=== PATIENT | male | born 1955 | race Caucasian/White ===

== ENCOUNTER → 2018-07-19 | Outpatient (CLI) | payer BC ==
--- NOTE | 2018-07-19 20:20 | Diagnostic Imaging Report ---
EXAMINATION: Magnetic resonance imaging of the right shoulder without contrast. DATE: July 19, 2018. COMPARISON: None. HISTORY: 63-year-old male, fall in May 2018 with persistent right shoulder pain and decreased range of motion. TECHNIQUE: Magnetic Resonance Imaging sequences were performed of the shoulder without contrast. FINDINGS: ROTATOR CUFF, LIGAMENTS, TENDONS, AND MUSCLES: There is severe supraspinatus tendinopathy. There is a 15 mm wide full-thickness tear of the supraspinatus tendon with a fluid-filled tendon gap measuring 8 mm as measured on coronal T2 fat saturation sequence image 10. The tear is just proximal to the supraspinatus tendon insertion. There is infraspinatus tendinopathy. The teres minor tendon is intact. The subscapularis tendon is intact. There is low-level edema-like signal in portions of the supraspinatus muscle as well as a very small intramuscular ganglion cyst. The low level edema in the muscle potentially could relate to a low-grade muscle strain and does not involve the entire muscle. LONG HEAD OF BICEPS: The biceps labral attachment and long head of the biceps tendon is intact. The long head of the biceps tendon is normally positioned within the bicipital groove. GLENOHUMERAL JOINT: The humeral head is well positioned relative to the glenoid. There is a tear involving the posterior inferior labrum extending from approximately the 7 o'clock to 8 o'clock position to involve the entire length of the inferior labrum and likely extending to the anterior inferior labrum at the 4 o'clock to 5 o'clock position. There is no identified paralabral cyst. The articular cartilage is grossly intact. There is no joint effusion. ACROMIOCLAVICULAR JOINT: The acromioclavicular joint is normally aligned. The coracoclavicular and coracoacromial ligaments are intact. There are mild to moderate acromioclavicular degenerative changes with 2 mm undersurface osteophytes. BONE: There is no os acromiale. There is no acute fracture, bone contusion, or evidence of osteonecrosis. BURSAE AND SOFT TISSUES: There is fluid in the subacromial subdeltoid bursa compatible with the full-thickness rotator cuff tendon tear, bursitis, and/or recent injection. IMPRESSION: 1. Supraspinatus tendinopathy with a 15 mm wide full-thickness tear of the supraspinatus tendon with a fluid-filled tendon gap of 8 mm. No fatty muscle atrophy. Low level edema in portions of the supraspinatus muscle most likely relate to a low-grade muscle strain. Infraspinatus tendinopathy. 2. Mild to moderate acromioclavicular degenerative changes with 2 mm undersurface osteophytes. No os acromiale. 3. Inferior labral tear which likely extends from the posterior inferior labrum at approximately the 7 o'clock to 8 o'clock position to the anterior inferior labrum at the 4 o'clock to 5 o'clock position. No paralabral cyst. Grossly intact articular cartilage. 4. No acute fracture or bone contusion. 5. Fluid in the subacromial subdeltoid bursa compatible with the full-thickness rotator cuff tendon tear, bursitis, and/or recent injection. Dictated by: Dictated on workstation # [id number]
== END ==
LOC: RAD 15:14
PROVIDERS: ATTEND Nurse Practitioner
DX: M75.121 Complete rotator cuff tear or rupture of right shoulder, not specified as traumatic (principal); M67.813 Other specified disorders of tendon, right shoulder; M19.011 Primary osteoarthritis, right shoulder; S43.491A Other sprain of right shoulder joint, initial encounter
CPT/HCPCS: 73221

== ENCOUNTER → 2019-08-30 | Outpatient (CLI) | payer BC ==
--- NOTE | 2019-08-30 14:51 | Diagnostic Imaging Report ---
INDICATION: Severe right hip pain, post injury many years ago. TECHNIQUE: Two views of the right hip. CORRELATION STUDY: None FINDINGS: An approximately 15 mm well-corticated calcification interposed between the ischial tuberosity and lesser trochanter is present and may be owing to previous avulsion type injury. Slight sclerosis and irregularity along the ischial tuberosity are noted. An acute bony abnormality is not demonstrated. The femoral head/acetabular relationship appears maintained. The bony trabecular pattern is intact. There is also slight irregularity with prominent ossification at the superior aspect of the right greater trochanter. The visualized portion of the right SI joint is unremarkable. Mild sclerosis of the pubic symphysis. IMPRESSION: Negative for acute bony abnormality of the right hip. Well-corticated bone fragment interposed between the ischial tuberosity and lesser trochanter as well as slight irregularity about the greater trochanter may reflect previous avulsion injury. Dictated by: Dictated on workstation # [id number]
== END ==
LOC: RAD FS 13:34
PROVIDERS: ATTEND Nurse Practitioner
DX: M25.551 Pain in right hip (principal)
CPT/HCPCS: 73502

== ENCOUNTER → 2020-01-24 | Outpatient (CLI) | payer BC ==
--- NOTE | 2020-01-24 14:32 | Diagnostic Imaging Report ---
EXAMINATION: Left hip at 1:42 PM. INDICATION: Hip pain. TECHNIQUE/COMPARISON: Two views are obtained. There are no prior studies available for comparison. FINDINGS: There is no fracture, dislocation, or acute bony abnormality evident. There is mild degenerative disease of the hip joint. There also appears to be mild degenerative change of the left sacroiliac joint. The soft tissues are unremarkable. IMPRESSION: There is no evidence for an acute bony abnormality. Dictated by: Dictated on workstation # [id number]
== END ==
LOC: RAD FS 13:30
PROVIDERS: ATTEND Nurse Practitioner
DX: M25.552 Pain in left hip (principal)
CPT/HCPCS: 73502

== ENCOUNTER 2022-01-04 09:40 | Emergency (ER) | payer BC ==
[~2022-01-04] VITALS: Ht 187 cm; Wt 93.0 kg
[2022-01-04] MEDS ORDERED: LIDOCAINE 1% INJ 50 ML (XYLOCAINE) VIAL ONE (09:47)
[2022-01-04] MEDS ORDERED: LIDOCAINE 1% INJ 50 ML (XYLOCAINE) VIAL IJ STA (10:07)
[2022-01-04 10:09] VITALS: BP 154/80
[2022-01-04] MEDS ORDERED: CEPH500C PO (10:12)
--- NOTE | 2022-01-04 10:12 | ED Lower Extremity ---
General Chief Complaint: Laceration Stated Complaint: LT KNEE LAC Nursing Triage Note: PT REPORTS HE WAS CUTTING SAPPLINGS WITH A CHAIN SAW AND THE SAW HIT A STUMP AND KICKED BACK AND HIT HIS KNEE. LAC TO LEFT KNEE. Source: patient History of Present Illness Date Seen by Provider: Jan 04, 2022 Time Seen by Provider: 09:41 Initial Comments 66-year-old male presenting with complaints of laceration to his left knee. He was using a chainsaw cutting down samplings when 1 kicked back and made him accidentally cut into his knee. He denies any significant pain. He states he has been more than 5 years for his last tetanus booster. He has bleeding controlled with pressure. He denies any other injuries. He does have chronic pain in the knee and is scheduled to see orthopedic surgeon, Dr. Morton, next week. Onset: just prior to arrival Severity: mild Pain/Injury Location: left knee (laceration) Method of Injury: incised Modifying Factors: Worse With Movement Allergies and Home Medications Allergies Coded Allergies: No Known Drug Allergies (Unverified , 01/04/22) Patient Home Medication List Home Medication List Reviewed: Yes Cephalexin (Cephalexin) 500 Mg Capsule, 500 MG PO TID Prescribed by: ERNA WONG on 01/04/22 1012 Review of Systems Constitutional: No chills, No fever EENTM: no symptoms reported Respiratory: no symptoms reported Cardiovascular: no symptoms reported Gastrointestinal: no symptoms reported Genitourinary: no symptoms reported Musculoskeletal: see HPI Skin: see HPI Psychiatric/Neurological: Denies Numbness, Denies Paresthesia Past Tkzubkj-Yemrxk-Abbetw Hx Patient Social History Tobacco Use?: Yes Tobacco type used: Cigarettes Smoking Status: Current Everyday Smoker Use of E-Cig and/or Vaping dev: No Substance use?: No Alcohol Use?: No Pt feels they are or have been: No Immunizations Up To Date First/Initial COVID19 Vaccinat: 2020 COVID19 Vaccine Clinical Mental Health Counselor: [employer] Physical Exam Vital Signs Vital Signs - First Documented 01/04/22 09:45 Temp 36.4 Pulse 104 Resp 20 B/P (MAP) 154/80 (104) Pulse Ox 97 O2 Delivery Room Air Capillary Refill : Less Than 3 Seconds Height, Weight, BMI Height: '" Weight: lbs. oz. kg; 26.00 BMI Method: General Appearance: WD/WN, no apparent distress Cardiovascular: normal peripheral pulses Knees: left knee soft tissue tenderness (mild tenderness to the left knee at site of laceration) Neurologic/Tendon: normal sensation, normal motor functions, normal tendon functions Neurologic/Psychiatric: no motor/sensory deficits, alert, normal mood/affect, oriented x 3 Skin: warm/dry, other (laceration to left knee medial aspect) Procedures/Interventions Wound Location: Lower Extremities (left knee medial aspect) Wound Length (cm): 3.6 Wound's Depth, Shape: irregular, contused tissue, sub Q Wound Explored: clean Irrigated w/ Saline (ccs): 100 (with chlorhexidine scrub soap) Anesthesia: 1% Lidocaine Volume Anesthetic (ccs): 6 Suture: Ethlion Suture Size: 4-0 Number of Sutures: 7 Layer Closure?: 1 Sterile Dressing Applied?: Yes Progress After obtaining verbal consent from the patient the wound was cleaned with a chlorhexidine scrub soap and sterile water. Then using 1% plain lidocaine a total of 6 mL were infiltrated in the wound for anesthetic effect. The wound was further cleaned and no foreign bodies were visualized. Using 4-0 Ethilon 7 simple interrupted stitches were placed to approximate the wound edges. Wound edges were well approximated and patient tolerated procedure well without any immediate complication. Will prescribe a 7-day course of cephalexin to help prevent infection since the laceration was through his jeans. Counseled on follow-up and return precautions. Advised to have the stitches out in 10 to 14 days or be seen sooner if signs of infection. Progress/Results/Core Measures Results/Orders My Orders Orders - ERNA WONG MD Lidocaine 1% Inj 50 Ml (Xylocaine 1% Inj (01/04/22 09:47) Lidocaine 1% Inj 50 Ml (Xylocaine 1% Inj (01/04/22 10:07) Dipht,Pertuss(Acell),Tet Adult (Boostrix (01/04/22 10:15) Suture Set At Bedside (01/04/22 10:07) Wound Dressing-Ed (01/04/22 10:07) Medications Given in ED Current Medications Medications Dose Ordered Sig/Ran Route Start Time Stop Time Status Last Admin Dose Admin Diphtheria/ Tetanus/Acell Pertussis 0.5 ml ONCE ONCE IM 01/04/22 10:15 01/04/22 10:16 01/04/22 10:12 0.5 ML Lidocaine HCl 50 ml STK-MED ONCE .ROUTE 01/04/22 09:47 01/04/22 09:51 DC 01/04/22 09:54 5 ML Vital Signs/I&O 01/04/22 01/04/22 09:45 10:09 Temp 36.4 36.4 Pulse 104 104 Resp 20 20 B/P (MAP) 154/80 (104) 154/80 Pulse Ox 97 97 O2 Delivery Room Air Room Air 2 Blood Pressure Mean: 104 Progress Progress Note : Progress Note Update tetanus booster. Using 4-0 Ethilon 7 simple interrupted stitches were placed to approximate wound edges. Discharged on a week of antibiotics to try and help prevent infection since the laceration was through his jeans. Departure Impression Primary Impression: Laceration without foreign body, left knee, initial encounter Disposition: HOME, SELF-CARE Condition: Stable Departure-Patient Inst. Decision time for Depature: 10:09 Referrals: ABIEL WHITESIDE MD (PCP) Primary Care Physician Patient Instructions: Laceration Repair With Stitches ED Add. Discharge Instructions: Keep area clean and dry for the first 24 hours. After that you may remove the dressing and wash with soap and water but do not soak the wound. You may apply antibiotic ointment and redress the wound as needed, especially if it is rubbing against clothes or might get dirty. Take antibiotics to help prevent infection since the cut went through your clothes. Stitches need to be removed in 10 to 14 days. Be seen sooner if you have signs of infection such as redness streaking up your leg, fever over 101 F or pus draining from the wound. All discharge instructions reviewed with patient and/or family. Voiced understanding. Scripts Cephalexin (Cephalexin) 500 Mg Capsule 500 MG PO TID for Knee laceration for 7 Days, #21 CAP 0 Refills Prov: ERNA WONG MD 01/04/22 Images Extremities-Lower 1 - Contusion, Laceration ERNA WONG MD Jan 04, 2022 10:12
[2022-01-04] MEDS ORDERED: TETANUS,DIPTH,PERTUSS P/F (BOOSTRIX) 0.5 ML VIAL IM ONE (10:15)
== END 2022-01-04 10:20 | disposition home or self-care (01) ==
LOC: EDUNIT# 09:40 → ER FS 09:42
DX: S81.012A Laceration without foreign body, left knee, initial encounter (principal); F17.210 Nicotine dependence, cigarettes, uncomplicated; Z23 Encounter for immunization; W31.2XXA Contact with powered woodworking and forming machines, initial encounter
CPT/HCPCS: 12002; 90715